=== PATIENT | male | born 1960 | race Caucasian/White ===

== ENCOUNTER 2016-03-29 21:16 | Inpatient (IN) | payer SELFPAY ==
[~2016-03-29] VITALS: Ht 182.9 cm; Wt 100.2 kg
[2016-03-29 21:48] LABS: Basophils # (auto) 0.1 uL; Eosinophils # (auto) 0.2 uL; Eosinophils % (auto) 2.3 % (0.0-7.0); Hematocrit 45.8 % (41.0-53.0); Hemoglobin 15.1 g/dL (13.5-17.5); Lymphocytes # (auto) 2.5 uL; Lymphocytes % (auto) 26.5 % (10.0-50.0); Mean Corpuscular Hemoglobin 28.9 pg (28.0-32.0); Mean Corpuscular Volume 87.5 fL (80.0-100.0); Monocytes % (auto) 10.9 % (0.0-12.0); Neutrophils # (auto) 5.6 uL; Neutrophils % (auto) 59.3 % (37.0-80.0); Platelet Count (auto) 298 10^3/uL (140-450); Red Cell Distribution Width 14.2 % (11.6-16.0); White Blood Cell 9.5 10^3/uL (4.4-10.8)
[2016-03-29 22:01] LABS: INR 1.01 (0.9-1.15); Partial Thromboplastin Time 26.3 sec (22.64-33.71); Prothrombin Time 10.4 sec (9.37-12.3)
[2016-03-29 22:06] LABS: Albumin 3.2 g/dL (3.4-5.0); BUN/Creatinine Ratio 18.4; Bilirubin, Total 0.2 mg/dL (0.2-1.0); Calcium 8.9 mg/dL (8.5-10.1); Potassium 3.5 mmol/L (3.5-5.1); Total Protein 7.1 g/dL (6.4-8.2)
[2016-03-29 22:11] LABS: B-Type Natriuretic Peptide 18.54 pg/mL (0-100)
[2016-03-29] MEDS ORDERED: LACTATED RINGER'S 1,000 ML IV ONE (23:00)
[2016-03-29 23:02] LABS: Urine RBC None Seen /hpf (0 - 3)
[2016-03-29 23:09] LABS: Urine Bilirubin Negative (Negative); Urine Blood Negative /uL (Negative); Urine Color Yellow (Yellow); Urine Glucose Normal (Normal); Urine Ketone TRACE (Negative); Urine Mucus FEW (None Seen); Urine Nitrite Negative (Negative); Urine pH 5.5 (5.0-8.0)
[2016-03-30] MEDS ORDERED: ONDANSETRON HCL 4 MG/2 ML VIAL IV ONE
[2016-03-30] MEDS ORDERED: HYDROmorphone HCL 2 MG/ML VL IV ONE
[2016-03-30] MEDS ORDERED: ACETAMINOPHEN 325 MG TAB PO PRN (06:30)
[2016-03-30] MEDS ORDERED: ONDANSETRON HCL 4 MG/2 ML VIAL IV PRN (06:30)
[2016-03-30] MEDS: HYDROcodone-ACET 5/325MG TAB PO PRN ×2 (08:19→13:20)
[2016-03-30 08:25] VITALS: BP 127/69
[2016-03-30] MEDS: ENOXAPARIN SOD 40 MG/0.4 ML SYRINGE SC SCH (10:00)
[2016-03-30] MEDS: LISINOPRIL 5 MG TAB PO SCH (10:00)
[2016-03-30] MEDS: CITALOPRAM HYDROBR 20 MG TAB PO SCH (10:00)
[2016-03-30] MEDS: ASPirin 81 mg TAB PO SCH (10:00)
[2016-03-30] MEDS: FAMOTIDINE 20 MG TAB PO SCH ×2 (10:00→21:47)
[2016-03-30 11:51] VITALS: BP 130/60
[2016-03-30] MEDS ORDERED: AMLO5TAB2 PO (15:19)
[2016-03-30] MEDS ORDERED: LISI-707 PO (15:19)
[2016-03-30] MEDS ORDERED: HYDR-3682 PO (15:19)
[2016-03-30] MEDS ORDERED: SIMV10TA84 PO (15:19)
[2016-03-30] MEDS ORDERED: METO50TA7 PO (15:19)
[2016-03-30] MEDS ORDERED: METO-169 PO (15:19)
[2016-03-30] MEDS ORDERED: CITA-77 PO (15:20)
[2016-03-30] MEDS ORDERED: LORA1TAB12 PO (15:20)
[2016-03-30 16:53] VITALS: BP 142/74
[2016-03-30] MEDS: MORPHINE SULF INJ 2 MG/ML SYRINGE 1ML IV PRN ×2 (17:51→21:56)
[2016-03-30 20:00] VITALS: BP 119/66
[2016-03-30] MEDS: PRAVASTATIN SODIUM 20 MG TAB PO SCH (21:48)
[2016-03-30] MEDS ORDERED: PATIENTS OWN MEDICATION (simvastatin 20 MG) PO SCH ×2 (22:00)
[2016-03-30] MEDS ORDERED: LORazepam 2MG/ML-1ML VIAL IV PRN (22:00)
[2016-03-30] MEDS: ATORVASTATIN 20 MG TAB PO SCH (22:17)
[2016-03-31 05:12] VITALS: BP 133/79
[2016-03-31 06:27] LABS: Basophils # (auto) 0.1 uL; Basophils % (auto) 0.7 % (0.0-2.0); Eosinophils # (auto) 0.2 uL; Eosinophils % (auto) 2.8 % (0.0-7.0); Hematocrit 45.8 % (41.0-53.0); Hemoglobin 14.9 g/dL (13.5-17.5); Lymphocytes % (auto) 23.9 % (10.0-50.0); Mean Corpuscular Hemoglobin 28.7 pg (28.0-32.0); Mean Corpuscular Hgb Conc. 32.5 g/dL (32.0-36.0); Mean Corpuscular Volume 88.3 fL (80.0-100.0); Mean Platelet Volume 9.9 fL (7.4-10.4); Monocytes # (auto) 0.9 uL; Monocytes % (auto) 10.5 % (0.0-12.0); Neutrophils # (auto) 5.3 uL; Neutrophils % (auto) 62.1 % (37.0-80.0); Platelet Count (auto) 220 10^3/uL (140-450); Red Cell Distribution Width 12.8 % (11.6-16.0); White Blood Cell 8.5 10^3/uL (4.4-10.8)
[2016-03-31 07:19] LABS: BUN/Creatinine Ratio 18.8; Bilirubin, Total 0.5 mg/dL (0.2-1.0); Calcium 8.9 mg/dL (8.5-10.1); Potassium 3.8 mmol/L (3.5-5.1); Total Protein 6.8 g/dL (6.4-8.2)
[2016-03-31 08:44] VITALS: BP 136/77
[2016-03-31] MEDS: ENOXAPARIN SOD 40 MG/0.4 ML SYRINGE SC SCH (10:12)
[2016-03-31] MEDS: FAMOTIDINE 20 MG TAB PO SCH ×2 (10:13→22:04)
[2016-03-31] MEDS: ASPirin 81 mg TAB PO SCH (10:14)
[2016-03-31] MEDS: CITALOPRAM HYDROBR 20 MG TAB PO SCH (10:14)
[2016-03-31] MEDS: LISINOPRIL 5 MG TAB PO SCH (10:14)
[2016-03-31] MEDS: MORPHINE SULF INJ 2 MG/ML SYRINGE 1ML IV PRN ×2 (10:15→18:25)
[2016-03-31 13:00] VITALS: BP 143/74
[2016-03-31 16:57] VITALS: BP 138/106
[2016-03-31 21:53] VITALS: BP 140/70
[2016-03-31] MEDS: ATORVASTATIN 20 MG TAB PO SCH (22:04)
[2016-03-31] MEDS: PRAVASTATIN SODIUM 20 MG TAB PO SCH (22:04)
[2016-04-01] MEDS: MORPHINE SULF INJ 2 MG/ML SYRINGE 1ML IV PRN ×3 (04:02→12:59)
[2016-04-01 05:41] VITALS: BP 132/73
[2016-04-01 08:49] VITALS: BP 132/75
[2016-04-01] MEDS: FAMOTIDINE 20 MG TAB PO SCH ×2 (09:05→22:55)
[2016-04-01] MEDS: CITALOPRAM HYDROBR 20 MG TAB PO SCH (09:06)
[2016-04-01] MEDS: ASPirin 81 mg TAB PO SCH (09:06)
[2016-04-01] MEDS: ENOXAPARIN SOD 40 MG/0.4 ML SYRINGE SC SCH (09:10)
[2016-04-01] MEDS: LISINOPRIL 5 MG TAB PO SCH (10:00)
[2016-04-01] MEDS: GABAPENTIN 100 MG CAP PO SCH ×2 (12:58→22:57)
[2016-04-01 13:00] VITALS: BP 139/79
[2016-04-01 16:58] VITALS: BP 154/70
[2016-04-01] MEDS: HYDROcodone-ACET 5/325MG TAB PO PRN (17:22)
[2016-04-01] MEDS ORDERED: ATORVASTATIN 20 MG TAB PO SCH (22:00)
[2016-04-01] MEDS: PRAVASTATIN SODIUM 20 MG TAB PO SCH (22:56)
[2016-04-01 23:30] VITALS: BP 123/73
[2016-04-01 23:34] VITALS: BP 144/77
[2016-04-02] MEDS: HYDROcodone-ACET 5/325MG TAB PO PRN ×2 (01:01→08:23)
[2016-04-02 05:17] VITALS: BP 130/71
[2016-04-02] MEDS: GABAPENTIN 100 MG CAP PO SCH ×2 (06:19→14:15)
[2016-04-02 09:00] VITALS: BP 157/74
[2016-04-02] MEDS: LISINOPRIL 5 MG TAB PO SCH (09:54)
[2016-04-02] MEDS: ASPirin 81 mg TAB PO SCH (09:54)
[2016-04-02] MEDS: ENOXAPARIN SOD 40 MG/0.4 ML SYRINGE SC SCH (09:55)
[2016-04-02] MEDS: FAMOTIDINE 20 MG TAB PO SCH (09:55)
[2016-04-02] MEDS: CITALOPRAM HYDROBR 20 MG TAB PO SCH (09:55)
[2016-04-02 12:27] VITALS: BP 111/77
[2016-04-02 13:00] VITALS: BP 139/73
== END 2016-04-02 14:24 | disposition home or self-care (01) | DRG 92 ==
LOC: ER 21:16 → EDBD 21:16 → OVERFLOW 21:17 → TELE-E-ADS 03-30 08:40 → EAST 03-30 12:07
PROVIDERS: ADMIT Nurse Practitioner; ATTEND Internal Medicine Pulmonary Disease
DX: R20.0 Anesthesia of skin (principal); E44.1 Mild protein-calorie malnutrition; E87.0 Hyperosmolality and hypernatremia; I69.351 Hemiplegia and hemiparesis following cerebral infarction affecting right dominant side; E78.5 Hyperlipidemia, unspecified; E87.8 Other disorders of electrolyte and fluid balance, not elsewhere classified; I12.9 Hypertensive chronic kidney disease with stage 1 through stage 4 chronic kidney disease, or unspecified chronic kidney disease; G89.4 Chronic pain syndrome; G89.0 Central pain syndrome; F32.9 Major depressive disorder, single episode, unspecified; F41.9 Anxiety disorder, unspecified; R73.9 Hyperglycemia, unspecified; J32.0 Chronic maxillary sinusitis; I67.9 Cerebrovascular disease, unspecified; N18.3 Chronic kidney disease, stage 3 (moderate); Z98.890 Other specified postprocedural states; Z79.82 Long term (current) use of aspirin; Z68.30 Body mass index [BMI] 30.0-30.9, adult
CPT/HCPCS: 36415; 70450; 70545; 70551; 71010; 80053; 80061; 81001; 83880; 84484; 85025; 85610; 85730; 93005; 93306; 93886; 94761; 96361; 96374; 96375; J2405

== ENCOUNTER 2017-11-27 00:02 | Emergency (ER) | payer MEDICAID ==
[~2017-11-27] VITALS: Ht 182.9 cm; Wt 111.1 kg
[~2017-11-27 00:02] MED LIST: AMLO5TAB13 PO; CITA-77 PO; HYDR-3682 PO; LISI-707 PO; LORA1TAB12 PO; MET5XLT PO; METO-169 PO; SIMV10TA84 PO
[2017-11-27 00:32] LABS: Basophils # (auto) 0.1 uL; Basophils % (auto) 1.2 % (0.0-2.0); Eosinophils # (auto) 0.2 uL; Eosinophils % (auto) 2.2 % (0.0-7.0); Hematocrit 48.8 % (41.0-53.0); Hemoglobin 16.4 g/dL (13.5-17.5); Lymphocytes # (auto) 2.3 uL; Lymphocytes % (auto) 25.3 % (10.0-50.0); Mean Corpuscular Hemoglobin 29.1 pg (28.0-32.0); Mean Corpuscular Hgb Conc. 33.6 g/dL (32.0-36.0); Mean Corpuscular Volume 86.6 fL (80.0-100.0); Monocytes # (auto) 1.1 uL; Monocytes % (auto) 12.5 % (0.0-12.0); Neutrophils # (auto) 5.3 uL; Neutrophils % (auto) 58.8 % (37.0-80.0); Nucleated Red Blood Cells % 0.2 %; Platelet Count (auto) 262 10^3/uL (140-450); Red Blood Cells 5.64 10^6/uL (4.5-5.90); Red Cell Distribution Width 13.6 % (11.8-14.3)
[2017-11-27 00:49] LABS: Albumin 3.3 g/dL (3.4-5.0); BUN/Creatinine Ratio 13.3; Calcium 8.9 mg/dL (8.5-10.1); Potassium 3.7 mmol/L (3.5-5.1)
[2017-11-27 00:52] LABS: Bilirubin, Total 0.5 mg/dL (0.2-1.0); Total Protein 7.9 g/dL (6.4-8.2)
[2017-11-27 04:25] LABS: Magnesium 2.2 mg/dL (1.6-2.6)
[2017-11-27 04:27] LABS: INR 0.93 (0.9-1.15); Partial Thromboplastin Time 28.5 sec (23.78-33.04)
[2017-11-27] MEDS ORDERED: ACETAMINOPHEN 325 MG TAB PO ONE (04:44)
[2017-11-27 04:47] LABS: Alcohol, Urine < 3.0 mg/dL (0-5); Amphetamine Screen, Urine NEGATIVE (NEGATIVE); Barbiturate Scree,Urine NEGATIVE (NEGATIVE); Benzodiazephine Screen, Urine NEGATIVE (NEGATIVE); Cannabinoid Screen, Urine NEGATIVE (NEGATIVE); Cocaine Screen, Urine NEGATIVE (NEGATIVE); Opiate Scree,Urine NEGATIVE (NEGATIVE); Phencyclidine Screen, Urine NEGATIVE (NEGATIVE)
[2017-11-27 05:54] LABS: Urine Bacteria FEW /hpf (None Seen); Urine Blood Negative /uL (Negative); Urine Mucus FEW (None Seen); Urine Specific Gravity 1.023 (1.001-1.035); Urine WBC 1 /hpf (0 - 3)
[2017-11-27 12:30] VITALS: BP 144/78
== END 2017-11-27 12:48 | disposition home or self-care (01) ==
LOC: EDBD 00:02 → ER 00:23
DX: G81.91 Hemiplegia, unspecified affecting right dominant side (principal); G62.9 Polyneuropathy, unspecified; E44.1 Mild protein-calorie malnutrition; I69.30 Unspecified sequelae of cerebral infarction; F17.210 Nicotine dependence, cigarettes, uncomplicated; I10 Essential (primary) hypertension; Z68.33 Body mass index [BMI] 33.0-33.9, adult
CPT/HCPCS: 36415; 70450; 71046; 80053; 80307; 81001; 83735; 83880; 84484; 85025; 85610; 85730; 93005